=== PATIENT | male | born 1980 | race Caucasian/White ===

== ENCOUNTER → 2020-02-01 | Outpatient (CLI) | payer MEDICARE, MEDICAID ==
[~2020-02-01] MED LIST: CHOL10003 PO; MULT-516 PO; POTA10TA31 PO; SIMV20TA19 PO
== END | disposition home or self-care (01) ==
LOC: STAR 10:23
PROVIDERS: ATTEND Surgery
DX: Z01.818 Encounter for other preprocedural examination (principal); Z11.59 Encounter for screening for other viral diseases; N18.9 Chronic kidney disease, unspecified
CPT/HCPCS: 36415; 87635

== ENCOUNTER 2020-02-05 12:57 | Day surgery (SDC) | payer MEDICARE, MEDICAID ==
[~2020-02-05] VITALS: Ht 149.9 cm; Wt 68.6 kg
[2020-02-05] MEDS ORDERED: FENTANYL PF 100 MCG/2ML IV PRN (13:30)
[2020-02-05] MEDS ORDERED: HYDROcodone/APAP 7.5-325MG/15ML UDC PO PRN (13:30)
[2020-02-05] MEDS ORDERED: PROMETHAZINE 25 MG/ML, 1ML IVPush PRN (13:30)
[2020-02-05] MEDS ORDERED: OXYcodone 5 MG/5 ML ORAL.SOL UDC PO PRN (13:30)
[2020-02-05] MEDS ORDERED: MEPERIDINE/PF 25MG/0.5ML IVPush PRN (13:30)
[2020-02-05] MEDS ORDERED: HYDROmorphone 1 MG/ML, 1ML INJ IVPush PRN (13:30)
[2020-02-05] MEDS ORDERED: SODIUM CHLORIDE 0.9% 1,000 ML IV SCH (13:32)
[2020-02-05] MEDS ORDERED: LIDOCAINE-MPF 1%, 2ML ONE (13:36)
[2020-02-05] MEDS ORDERED: CHLORHEXIDINE 15 ML UDC ONE (13:37)
[2020-02-05] MEDS ORDERED: LIDOCAINE-MPF 1%, 2ML INFIL ONE (14:00)
[2020-02-05] MEDS ORDERED: CHLORHEXIDINE 15 ML UDC MM ONE (14:00)
[2020-02-05] MEDS ORDERED: PAPAVERINE 30 MG/ML, 2ML ONE (14:15)
[2020-02-05] MEDS ORDERED: BUPIVACAINE/PF-EPI 0.5% 1:200K ONE (14:15)
[2020-02-05] MEDS ORDERED: BACITRACIN 50,000 UNIT ONE (14:16)
[2020-02-05] MEDS ORDERED: LIDOCAINE 1%, 20ML ONE (14:16)
[2020-02-05] MEDS ORDERED: PROTAMINE SULFATE 10 MG/ML, 5ML ONE (14:16)
[2020-02-05] MEDS ORDERED: HEPARIN 1,000 UNITS/ML, 10ML ONE (14:16)
[2020-02-05] MEDS ORDERED: THROMBIN 20,000 UNIT VIAL TP ONE (14:16)
[2020-02-05] MEDS ORDERED: MIDAZOLAM 1 MG/ML, 2ML ONE (14:38)
[2020-02-05] MEDS ORDERED: FENTANYL PF 100 MCG/2ML ONE ×2 (14:38→15:39)
[2020-02-05] MEDS ORDERED: MIDAZOLAM 1 MG/ML, 5ML ONE (14:47)
[2020-02-05] MEDS ORDERED: DEXAMETHASONE 4 MG/ML, 1ML ONE (14:47)
[2020-02-05] MEDS ORDERED: PHENYLEPHRINE 10 MG/ML ONE (14:47)
[2020-02-05] MEDS ORDERED: PROPOFOL 10 MG/ML, 100ML IV ONE (14:47)
[2020-02-05] MEDS ORDERED: ONDANSETRON 2MG/ML, 2ML ONE (14:47)
[2020-02-05] MEDS ORDERED: BUPIVACAINE/PF 0.25% ONE (15:07)
[2020-02-05] MEDS ORDERED: HEPARIN 1,000 UNITS/ML, 10ML IVPB ONE (15:10)
[2020-02-05] MEDS ORDERED: BACITRACIN 50,000 UNIT IRRIG ONE (15:10)
[2020-02-05] MEDS ORDERED: BUPIVACAINE 0.25% INFIL ONE (15:31)
== END 2020-02-05 17:03 | disposition home or self-care (01) ==
LOC: OUT 12:57
PROVIDERS: ATTEND Surgery
DX: I12.9 Hypertensive chronic kidney disease with stage 1 through stage 4 chronic kidney disease, or unspecified chronic kidney disease (principal); N18.4 Chronic kidney disease, stage 4 (severe); E78.5 Hyperlipidemia, unspecified; Z79.899 Other long term (current) drug therapy; Z98.890 Other specified postprocedural states
CPT/HCPCS: 36821; J1100; J1644; J2250; J2370; J2405; J2704; J2720; J3010; J3490; J2440

== ENCOUNTER 2020-03-25 14:35 | Day surgery (SDC) | payer MEDICARE, MEDICAID ==
[~2020-03-25] VITALS: Ht 149.9 cm; Wt 69.5 kg
[~2020-03-25 14:35] MED LIST changes: +BUPIVACAINE/PF 0.25% ONE; +EPHEDRINE 50 MG/ML, 1ML IVPush PRN; +FENTANYL PF 100 MCG/2ML IV PRN; +HEPARIN 1,000 UNITS/ML, 10ML ONE; +HYDROmorphone 1 MG/ML, 1ML INJ IVPush PRN; +LABETALOL 5MG/ML, 20ML IV PRN; +LIDOCAINE/PF 1%, 30ML ONE; +MEPERIDINE/PF 25MG/0.5ML IVPush PRN; +ONDANSETRON 2MG/ML, 2ML IVPush PRN; +OXYcodone 5 MG/5 ML ORAL.SOL UDC PO PRN; +PAPAVERINE 30 MG/ML, 2ML ONE; +PROMETHAZINE 25 MG/ML, 1ML IVPush PRN; +PROTAMINE SULFATE 10 MG/ML, 5ML ONE; +THROMBIN 5,000 UNIT VIAL TP ONE; +hydrALAzine 20 MG/ML, 1ML IV PRN
[2020-03-25 15:13] VITALS: BP 99/68
[2020-03-25] MEDS ORDERED: CHLORHEXIDINE 15 ML UDC MM ONE (15:30)
[2020-03-25] MEDS ORDERED: ACETAMINOPHEN 500 MG TABLET PO ONE (15:30)
[2020-03-25] MEDS ORDERED: SODIUM CHLORIDE 0.9% 1,000 ML IV SCH (15:30)
[2020-03-25] MEDS ORDERED: FENTANYL PF 250 MCG/5ML ONE (16:41)
[2020-03-25] MEDS ORDERED: CEFAZOLIN 1,000 MG ONE (17:33)
[2020-03-25] MEDS ORDERED: PROPOFOL 10 MG/ML, 20ML ONE (17:33)
[2020-03-25] MEDS ORDERED: ONDANSETRON 2MG/ML, 2ML ONE (17:33)
[2020-03-25] MEDS ORDERED: DEXAMETHASONE 4 MG/ML, 1ML ONE (17:33)
[2020-03-25] MEDS ORDERED: PHENYLEPHRINE 10 MG/ML ONE (17:34)
[2020-03-25] MEDS ORDERED: LIDOCAINE-MPF 2% ,5ML ONE (17:34)
[2020-03-25] MEDS ORDERED: SODIUM CHLORIDE 0.9% PF 10ML ONE (17:35)
[2020-03-25] MEDS ORDERED: HEPARIN 1,000 UNITS/ML, 1ML IV ONE (17:35)
[2020-03-25] MEDS ORDERED: BUPIVACAINE 0.25% INJ ONE (17:35)
[2020-03-25] MEDS ORDERED: HYDR-3237 PO (21:27)
== END 2020-03-25 22:25 | disposition home or self-care (01) ==
LOC: OR 14:35 → 4NE 20:55 → OR 22:25
PROVIDERS: ATTEND Surgery
DX: N18.4 Chronic kidney disease, stage 4 (severe) (principal); E78.5 Hyperlipidemia, unspecified; R62.59 Other lack of expected normal physiological development in childhood; Z79.899 Other long term (current) drug therapy
CPT/HCPCS: 36819; J0690; J1100; J1644; J2370; J2405; J2704; J3010; J7030; G0378; J2720; J2440

== ENCOUNTER 2021-02-10 06:21 | Day surgery (SDC) | payer MEDICARE, MEDICAID ==
[~2021-02-10] VITALS: Ht 149.9 cm; Wt 70.2 kg
[~2021-02-10 06:21] MED LIST changes: -BUPIVACAINE/PF 0.25% ONE; -EPHEDRINE 50 MG/ML, 1ML IVPush PRN; -FENTANYL PF 100 MCG/2ML IV PRN; -HEPARIN 1,000 UNITS/ML, 10ML ONE; +HYDR-3237 PO; -HYDROmorphone 1 MG/ML, 1ML INJ IVPush PRN; -LABETALOL 5MG/ML, 20ML IV PRN; -LIDOCAINE/PF 1%, 30ML ONE; -MEPERIDINE/PF 25MG/0.5ML IVPush PRN; -ONDANSETRON 2MG/ML, 2ML IVPush PRN; -OXYcodone 5 MG/5 ML ORAL.SOL UDC PO PRN; -PAPAVERINE 30 MG/ML, 2ML ONE; -PROMETHAZINE 25 MG/ML, 1ML IVPush PRN; -PROTAMINE SULFATE 10 MG/ML, 5ML ONE; -THROMBIN 5,000 UNIT VIAL TP ONE; -hydrALAzine 20 MG/ML, 1ML IV PRN
[2021-02-10 06:57] VITALS: BP 135/60
[2021-02-10] MEDS ORDERED: EPOE40009 SQ (07:41)
[2021-02-10] MEDS ORDERED: CHLORHEXIDINE 15 ML UDC ONE (07:45)
[2021-02-10] MEDS ORDERED: CHLORHEXIDINE 15 ML UDC PO ONE (08:00)
[2021-02-10] MEDS ORDERED: ONDANSETRON 2MG/ML, 2ML ONE (08:30)
[2021-02-10] MEDS ORDERED: SUCCINYLCHOLINE 20 MG/ML, 10ML ONE (08:30)
[2021-02-10] MEDS ORDERED: PROPOFOL 10 MG/ML, 20ML ONE (08:30)
[2021-02-10] MEDS ORDERED: LIDOCAINE 1%, 10ML ONE (08:37)
[2021-02-10] MEDS ORDERED: LABETALOL 5MG/ML, 20ML IV PRN (09:30)
[2021-02-10] MEDS ORDERED: ACETAMINOPHEN 325 MG TABLET PO PRN ×2 (09:30)
[2021-02-10] MEDS ORDERED: HYDROcodone/APAP 7.5-325MG/15ML UDC PO PRN (09:30)
[2021-02-10] MEDS ORDERED: hydrALAzine 20 MG/ML, 1ML IV PRN (09:30)
[2021-02-10] MEDS ORDERED: KETOROLAC 30 MG/1 ML IV PRN (09:30)
[2021-02-10] MEDS ORDERED: ALBUTEROL SULFATE 2.5 MG/3 ML NPPB PRN ×2 (09:30)
[2021-02-10] MEDS ORDERED: DIAZEPAM 5 MG/ML, 2ML IVPush PRN (09:30)
[2021-02-10] MEDS ORDERED: FENTANYL PF 100 MCG/2ML IV PRN ×2 (09:30)
[2021-02-10] MEDS ORDERED: PROMETHAZINE 25 MG/ML, 1ML IV PRN (09:30)
[2021-02-10] MEDS ORDERED: MEPERIDINE/PF 25MG/0.5ML IVPush PRN (09:30)
[2021-02-10] MEDS ORDERED: PROMETHAZINE 12.5 MG SUPP PR PRN (09:30)
[2021-02-10] MEDS ORDERED: HYDROmorphone 2 MG/ML, 1ML IVPush PRN (09:30)
[2021-02-10] MEDS ORDERED: OXYcodone 5 MG/5 ML ORAL.SOL UDC PO PRN (09:30)
== END 2021-02-10 12:20 | disposition home or self-care (01) ==
LOC: RAD 06:21
PROVIDERS: ATTEND Pathology Hematology
DX: N18.6 End stage renal disease (principal); D63.1 Anemia in chronic kidney disease; N25.81 Secondary hyperparathyroidism of renal origin; D61.818 Other pancytopenia; Z20.822 Contact with and (suspected) exposure to COVID-19; Z79.899 Other long term (current) drug therapy
CPT/HCPCS: 38222; 77012; 85060; 85097; 87635; 88237; 88264; 88280; 88305; 88311; J0330; J2405; J2704; 88313

== ENCOUNTER 2021-03-07 11:20 | Emergency (ER) | payer MEDICARE, MEDICAID ==
[~2021-03-07] VITALS: Ht 147.3 cm; Wt 70.5 kg
[2021-03-07 11:33] VITALS: BP 128/63
[2021-03-07] MEDS ORDERED: LORazepam 1MG TABLET ONE (14:10)
--- NOTE | 2021-03-07 14:15 | NUR ---
Pt medicated per order with ativan pt denies any n/v/d, no abd pain, no cp or sob. Pt caregiver is here at bedside. Waiting for repeat labs to be drawn.
[2021-03-07] MEDS ORDERED: LORazepam 1MG TABLET PO ONE (14:30)
--- NOTE | 2021-03-07 14:59 | NUR ---
REPORT RECEIVED, CARE ASSUMED. PT DEVELOPMENTALLY DELAYED, BECOMES AGITATED WITH BLOOD DRAW. WOULD ONLY ALOW MEDICAL ASSISTANT OB GYN. PTS MOTHER AND [employer] SHELTERED WORKSH[employer] SUPERVISOR AT BEDSIDE. RIVER CROSSING SUPERVISOR ABLE TO OBTAIN BLOOD.
--- NOTE | 2021-03-07 15:07 | NUR ---
T[employer] SUPERVISORY LIFEGUARD OF PTS CUSTODIAL [phone]
[2021-03-07 15:11] LABS: BASOPHILS % (AUTO) 1 % (0-1); EOSINOPHILS % (AUTO) 3 % (1-7); LYMPHOCYTES % (AUTO) 27 % (22-44); MEAN CORPUSCULAR HEMOGLOBIN 33.9 pg (27.5-34.5); MEAN CORPUSCULAR HGB CONC 33.3 g/dL (33.2-36.2); MEAN PLATELET VOLUME 8.2 fL (7.4-10.4); MONOCYTES % (AUTO) 11 % (2-9); NEUTROPHILS % (AUTO) 59 % (42-75); PLATELET COUNT 153 x10^3/uL (130-400); RED BLOOD COUNT 1.66 x10^6/uL (4.38-5.82); RED CELL DISTRIBUTION WIDTH 17.6 % (9.4-14.8)
[2021-03-07 15:17] LABS: ALBUMIN 3.3 g/dL (3.4-5.0); ANION GAP 14 mmol/L (5-15); CALCIUM 8.2 mg/dL (8.5-10.1); CHLORIDE 107 mmol/L (98-107)
[2021-03-07 15:20] LABS: ALANINE AMINOTRANSFERASE 25 U/L (12-78); ALKALINE PHOSPHATASE 153 U/L (45-117); BILIRUBIN,TOTAL 0.7 mg/dL (0.2-1.0); CREATININE 7.19 mg/dL (0.7-1.3); TOTAL PROTEIN 9.1 g/dL (6.4-8.2)
--- NOTE | 2021-03-07 15:41 | NUR ---
DR CRUZ AT BEDSIDE TO RE-EVAL PT
--- NOTE | 2021-03-07 16:33 | NUR ---
PT NOT CO-OPERATIVE WITH IV START, WAS DISCUSSED WITH DR CRUZ. DR CRUZ AT BEDSIDE TO DISCUSS WITH PTS MOTHER (POA). PLAN TO GIVE ORAL SEDATION AND ATTEMPT IV START.
--- NOTE | 2021-03-07 16:54 | NUR ---
PER DR CRUZ, BLOOD TRANSFUSION TO BE CANCELLED
--- NOTE | 2021-03-07 17:26 | NUR ---
NO IV TO DC, REVIEWED DC INSTRUCTIONS WITH PT'S MOTHER, VERBALIZED UNDERSTANDING. PT PROVIDED WITH TAXI VOUCHER. PT LEFT AMB, GAIT STEADY.
== END 2021-03-07 17:28 | disposition home or self-care (01) ==
LOC: ED 11:25 → SUATTDRO 16:14 → ED 17:28
PROVIDERS: ATTEND Internal Medicine
DX: I12.9 Hypertensive chronic kidney disease with stage 1 through stage 4 chronic kidney disease, or unspecified chronic kidney disease (principal); N18.4 Chronic kidney disease, stage 4 (severe)
CPT/HCPCS: 36415; 80053; 85025; 86923; 99283

== ENCOUNTER → 2021-03-07 | Outpatient (CLI) | payer MEDICARE, MEDICAID ==
[~2021-03-07] MED LIST changes: +EPOE40009 SQ
[2021-03-07 08:05] LABS: BASOPHILS % (AUTO) 1 % (0-1); EOSINOPHILS % (AUTO) 2 % (1-7); LYMPHOCYTES % (AUTO) 26 % (22-44); MEAN CORPUSCULAR HEMOGLOBIN 34.3 pg (27.5-34.5); MEAN CORPUSCULAR HGB CONC 33.3 g/dL (33.2-36.2); MEAN PLATELET VOLUME 8.4 fL (7.4-10.4); MONOCYTES % (AUTO) 10 % (2-9); NEUTROPHILS % (AUTO) 60 % (42-75); PLATELET COUNT 152 x10^3/uL (130-400); RED BLOOD COUNT 1.77 x10^6/uL (4.38-5.82); RED CELL DISTRIBUTION WIDTH 17.7 % (9.4-14.8)
[2021-03-07 08:10] LABS: MICROSCOPIC AUTO
[2021-03-07 08:12] LABS: ALANINE AMINOTRANSFERASE 26 U/L (12-78); ALBUMIN 3.4 g/dL (3.4-5.0); ANION GAP 14 mmol/L (5-15); CALCIUM 8.5 mg/dL (8.5-10.1); CHLORIDE 106 mmol/L (98-107); CREATININE 7.08 mg/dL (0.7-1.3); IRON LEVEL 62 mcg/dL (65-175)
[2021-03-07 08:15] LABS: % IRON SATURATION 20 % (20-55); ALKALINE PHOSPHATASE 156 U/L (45-117); BILIRUBIN,TOTAL 0.6 mg/dL (0.2-1.0); TOTAL IRON BINDING CAPACITY 311 mcg/dL (250-450); TOTAL PROTEIN 9.1 g/dL (6.4-8.2)
[2021-03-07 08:23] LABS: CREATININE,URINE RANDOM 33.1 mg/dL
[2021-03-07 08:25] LABS: <PLATELET ESTIMATE> ADEQUATE; <PLT MORPHOLOGY> NORMAL PLT MORPH; ANISOCYTOSIS 1+; POLYCHROMASIA 1+
== END | disposition home or self-care (01) ==
LOC: LAB 07:30
PROVIDERS: ATTEND Internal Medicine Nephrology
DX: N18.5 Chronic kidney disease, stage 5 (principal); R80.9 Proteinuria, unspecified; E61.1 Iron deficiency
CPT/HCPCS: 36415; 80053; 81001; 82570; 83540; 83550; 84100; 84156; 85025